=== PATIENT | male | born 1950 | race Caucasian/White ===

== ENCOUNTER 2016-11-12 06:51 | Emergency (ER) | payer BC, OTHER ==
--- NOTE | 2016-11-12 07:01 | ERNOTE ---
Medical Problem HPI - General Time Seen by Provider: 11/12/16 06:54 Source: patient Exam Limitations: no limitations - Immun/Allergies/Home Medications Allergies/Adverse Reactions: Allergies egg Adverse Reaction (Mild, Verified 11/12/16 07:08) Vomiting prednisone Adverse Reaction (Mild, Verified 11/12/16 07:08) VISUAL CHANGES Home Medications: HOME MEDICATIONS Antiox#10/Om3/Dha/Epa/Lut/Zeax [I-Caps with Lutein-[place] [employer] Sfg] 1 each PO DAILY 07/24/14 [Last Taken Unknown] Ibuprofen [Motrin] 400 mg PO Q6H PRN 07/24/14 [Last Taken Unknown] Levothyroxine Sodium [Synthroid] 125 mcg PO DAILY 07/24/14 [Last Taken Unknown] Simvastatin [Zocor] 80 mg PO HS 07/24/14 [Last Taken Unknown] Allopurinol [Zyloprim] 300 mg PO DAILY 11/12/16 [Last Taken Unknown] Levothyroxine Sodium [Synthroid] 175 mcg PO DAILY 11/12/16 [Last Taken Unknown] Meclizine HCl 25 mg PO TID #30 tab.chew 11/12/16 [Last Taken Unknown] - History of Present History Narrative: pt complains of feeling "unbalanced" for two weeks. He states that he has gotten worse since 5:30 today. Denies headache or visual disturbances at this time or ever. Denies nausea. Denies chest pains or shortness of breath. Has taken no meds for this condition. Denies any head trauma. Review of Systems - Review of Systems Constitutional: Present: no symptoms reported EYE: Present: no symptoms reported ENT: Present: no symptoms reported Respiratory: Present: no symptoms reported Cardiology: Present: no symptoms reported Gastrointestinal/Abdominal: Present: no symptoms reported Genitourinary: Present: no symptoms reported Musculoskeletal: Present: no symptoms reported Skin: Present: no symptoms reported Neurological: Present: dizziness/light-headedness Physical Exam - Physical Exam General Appearance: Present: wd/wn, no apparent distress Ears, Nose, Throat: Present: normal ENT inspection, normal pharynx Neck: Present: normal inspection, nontender, supple, full range of motion Respiratory: Present: no respiratory distress, normal breath sounds, no accessory muscle use, chest nontender, lungs clear Cardiovascular/Chest: Present: regular rate, rhythm, no murmur, normal peripheral pulses Extremity Exam: Present: normal inspection Neurological Exam: Present: alert, oriented, normal mood/affect, no motor/ sensory deficits, other - gait appears to be steady. Pt has normal facies, normal speech. ED Progress - Results and Orders Patient's Lab Results:: I have reviewed the patient's lab results. - Vital Signs Patient's Vital Signs:: I have reviewed the patient's vital signs. - CT/Ultrasound CT/Ultrasound Narrative: CT of head was read as negative by radiologist Departure - Departure Clinical Impression: Vertigo Disposition: Home self-care Condition: Good Instructions: Vertigo, [id number] Referrals: Estefani Rome MD [Primary Care Provider] - Prescriptions: Meclizine HCl 25 mg PO TID #30 tab.chew
[2016-11-12 07:42] LABS: Hematocrit 40.3 % (42.0-52.0); Hemoglobin 14.1 gm/dL (13.5-18.0); Mean Cell Volume 84.7 fl (78-100); Mean Corpuscular Hemoglobin 29.6 pg (27-31); Mean Platelet Volume 9.1 fl (6.0-9.5); Neutrophil # 4.3 K/mm3 (1.3-6.0); Neutrophil % 68.5 % (42-75.0); Platelet Count 173 K/mm3 (150-450); Red Blood Count 4.76 M/mm3 (4.7-6.0); Red Cell Distribution Width 12.4 % (11.5-14.0); White Blood Count 6.3 K/mm3 (4.0-10.5)
--- OUTSIDE RECORDS SUMMARY | 2016-11-12 07:43 | XMS REPORT | Continuity of Care Document ---
:1950 Author Organization [facility] ([facility]) Address [address] [place] [address] Phone [phone] Care Team Providers Name Role Phone Estefani Rome Primary Care Provider [phone] Source Comments This disclosure is being made pursuant to the Care Everywhere program, applicable federal and state laws, and may not contain all informaitonavailable regarding this patient.[facility] ([facility]) Active Allergies and Adverse Reactions Allergen Noted Date Severity Reactions Comments Prednisone 06/06/2012 OTHER [employer] OS per Dr. Davila Current Medications Prescription Sig. Disp. Refills Start Date End Date Status aspirin 325 mg tablet Take 81 mg by mouth Active daily. simvastatin 80 mg tablet Take 80 mg by mouth Active every evening. levothyroxine 75 mcg Take 75 mcg by Active tablet mouth every morning before breakfast. ibuprofen 200 mg tablet Take 200 mg by Active mouth every 6 hours as needed. 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 Social History Tobacco Use Types Packs/Day Years Used Date Former Smoker Cigars Smokeless Tobacco: Never Used Tobacco Cessation:Counseling Given: Yes Comments:10 cigars per year Plan of Care Date Type Specialty Providers Description 11/23/2016 Appointment Ophthalmology - Crescencio Gamez MD [address] [place] [address] [phone] (Fax) Chief Comp: Patient Specialty Cameron Del Valle MD [address] [place] [address] [phone] (Fax) Reported Reason For Visit Health Maintenance Due Date Last Done Comments HCV Screening 1950 Hepatitis B Vaccine (1 of 3 - Primary Series) 1950 Tdap Vaccine 1962 Lipid Disorder Screening 1969 Td Vaccine 1969 Colonoscopy 07/11/2001 Prostate Cancer Screening 2001 Zoster Vaccine 2011 Pneumococcal Vaccine (1 of 2 - PCV13) 2016 Influenza Vaccine: Seasonal (Season Ended) 2017 Results from Last 3 Months Not on file
[2016-11-12 07:47] VITALS: BP 133/79
[2016-11-12 07:56] LABS: Albumin * 3.9 gm/dl (3.4-5.0); Anion Gap 10.7 mmol/L (6.8-13.8); BUN/Creatinine Ratio 14.1 (9.0-21.6); Bilirubin, Total 0.5 mg/dL (0.0-1.1); Ca. Corrected For Albumin 8.8 mg/dL (8.4-10.2); Carbon Dioxide 28.3 mmol/L (24-32.6); Total Protein 7.4 gm/dL (6.2-8.2)
== END 2016-11-12 08:09 | disposition home or self-care (01) ==
LOC: ER 06:51
DX: R42 Dizziness and giddiness (principal)